=== PATIENT | female | born 2000 | race Caucasian/White ===

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

== ENCOUNTER 2024-03-09 17:05 | Emergency (ER) | payer MEDICAID ==
[~2024-03-09] VITALS: Ht 167.6 cm; Wt 105.0 kg
[2024-03-09 17:24] VITALS: BP 113/63; PULSE 87; RESP 16; TEMP 98.8; O2SAT 100
== END 2024-03-09 21:17 | disposition home or self-care (01) ==
LOC: ER 17:05
DX: S09.90XA Unspecified injury of head, initial encounter (principal); F12.90 Cannabis use, unspecified, uncomplicated; Y08.89XA Assault by other specified means, initial encounter; Y93.89 Activity, other specified; Y92.89 Other specified places as the place of occurrence of the external cause; Y99.8 Other external cause status
CPT/HCPCS: 99284